=== PATIENT | female | born 1990 | race Caucasian/White ===

== ENCOUNTER 2017-03-19 17:16 | Emergency (ER) | payer BC ==
[~2017-03-19] VITALS: Ht 180.3 cm; Wt 104.3 kg
[2017-03-19 22:26] VITALS: BP 133/68
== END 2017-03-19 22:26 | disposition home or self-care (01) ==
LOC: ED 17:16
DX: R51 Headache (principal); R53.1 Weakness; R42 Dizziness and giddiness; H53.149 Visual discomfort, unspecified; M79.7 Fibromyalgia; K58.9 Irritable bowel syndrome, unspecified
CPT/HCPCS: J1200; J1885; J2765; J7030